=== PATIENT | female | born 1985 | race American Indian/Alaskan Native ===

== ENCOUNTER 2018-07-19 18:19 | Outpatient (CLI) | payer MEDICAID ==
[2018-07-19 18:58] VITALS: BP 119/67
[2018-07-19 20:19] LABS: Bilirubin,Urine NEG (Negative); Blood,Urine LG (Negative); Color,Urine Yellow (Yellow); Mucus,Urine FEW /HPF; Protein,Urine <15 mg/dL mg/dL (Negative); Urobilinogen,Urine < 2.0 mg/dL (<2.0); WBC,Urine < 1.0 /HPF (0.0-6.0)
[2018-07-19 21:34] LABS: Mean Corpuscular HGB Conc 33 % (30-34); Mean Corpuscular Volume 76 fl (79-97); Platelet Count 233 K/mm3 (140-440); Red Blood Count 3.93 M/mm3 (3.65-5.03); Red Cell Distribution Width 14.6 % (13.2-15.2)
[2018-07-19 21:36] LABS: Mean Corpuscular Hemoglobin 25 pg (28-32)
--- NOTE | 2018-07-19 22:36 | Ultrasound Report ---
PROCEDURE: US OB >= 14 WEEKS FETUS TECHNIQUE: Real-time transabdominal sonography of the uterus, placenta, amniotic fluid, adnexa, and fetus was performed with image documentation. Measurements were obtained to determine age/size. M-mode Doppler was used to document heartbeat. ADDITIONAL GESTATION: None HISTORY: vaginal spotting/no care COMPARISONS: None. FINDINGS: MATERNAL: Uterus and cervix: The cervix is closed measures 3.5 cm in length. Adnexa and ovaries: Not visualized. IUP: Single live intrauterine gestation. Position: Cephalic Placental position: Anterior with grade 1 maturity, without previa . Amniotic fluid volume Normal. CARLIN is 14.2 cm. Cardiac activity: Regular rhythm at 1 55 bpm, regular bpm. BIOMETRY: Biparietal diameter: 6 cm corresponding to 21 weeks and 2 days. Head circumference: 22.5 cm corresponding to 24 weeks and 4 days. abdominal circumference: 20.6 cm corresponding to 25 weeks and 1 day. Femur length: 4.5 cm corresponding to 24 weeks and 6 days. Ratio biometry: Normal . Estimated Weight: 752 grams +/- grams. ounces +/- .ounces. . percentile. Mean Gestational Age (composite criteria) based on today's measurements: 24 weeks and 5 days. Estimated Due Date (earliest scan): 11/03/2018. IMPRESSION: Single live intrauterine gestation at 24 weeks and 5 days. Estimated due date: 11/03/2018. This document is electronically signed by Marcelo Olivier MD., July 19 2018 10:34:34 PM ET
== END 2018-07-19 22:00 | disposition home or self-care (01) ==
LOC: TRG 18:19
PROVIDERS: ATTEND Obstetrics & Gynecology
DX: O47.02 False labor before 37 completed weeks of gestation, second trimester (principal); Z3A.24 24 weeks gestation of pregnancy
CPT/HCPCS: 36415; 76805; 81001; 82962; 85027; 87086

== ENCOUNTER 2018-08-05 08:19 | Outpatient (CLI) | payer MEDICAID ==
[2018-08-05 08:52] VITALS: BP 103/62
[2018-08-05] MEDS ORDERED: LACTATED RINGERS 500 ML IV ONE (09:00)
[2018-08-05 09:52] LABS: Bilirubin,Urine NEG (Negative); Blood,Urine NEG (Negative); Color,Urine Yellow (Yellow); Protein,Urine <15 mg/dL mg/dL (Negative); Urobilinogen,Urine < 2.0 mg/dL (<2.0)
[2018-08-05] MEDS ORDERED: TYLENOL PO PRN (11:08)
--- NOTE | 2018-08-05 11:10 | Ultrasound Report ---
PROCEDURE: US OB LIMITED TECHNIQUE: Limited obstetric ultrasound was performed for evaluation of the placenta HISTORY: placenta evaluation- post fall COMPARISONS: Obstetric ultrasound performed on 07/19/2018 FINDINGS: There is a single live intrauterine in cephalic presentation. heart rate is 152 bpm. There is an anterior, grade 3 placenta, that is away from the cervical os. There is no evidence of pl acental abruption. IMPRESSION: Anterior, grade 3 placenta. No evidence of placenta previa or placental abruption. Single live intrauterine in cephalic presentation. This document is electronically signed by Yadi Perdue MD., August 05 2018 11:08:25 AM ET
== END 2018-08-05 12:31 | disposition home or self-care (01) ==
LOC: TRG 08:19
PROVIDERS: ATTEND Obstetrics & Gynecology
DX: O47.02 False labor before 37 completed weeks of gestation, second trimester (principal); O99.512 Diseases of the respiratory system complicating pregnancy, second trimester; J45.909 Unspecified asthma, uncomplicated; Z3A.27 27 weeks gestation of pregnancy
CPT/HCPCS: 76815; 81001; 86850; 86900; 86901

== ENCOUNTER 2018-08-15 23:38 | Outpatient (CLI) | payer MEDICAID ==
[2018-08-16 00:16] VITALS: BP 119/64
[2018-08-16] MEDS ORDERED: LACTATED RINGERS 500 ML IV ONE (00:49)
[2018-08-16 02:50] LABS: Amorphous Crystals,Urine Few; Bilirubin,Urine NEG (Negative); Blood,Urine NEG (Negative); Color,Urine Yellow (Yellow); Mucus,Urine FEW /HPF; Protein,Urine <15 mg/dL mg/dL (Negative)
== END 2018-08-16 03:46 | disposition home or self-care (01) ==
LOC: TRG 23:38
PROVIDERS: ATTEND Obstetrics & Gynecology
DX: O47.03 False labor before 37 completed weeks of gestation, third trimester (principal); Z3A.28 28 weeks gestation of pregnancy
CPT/HCPCS: 81001; 87086; J7120

== ENCOUNTER 2018-10-10 22:22 | Outpatient (CLI) | payer MEDICAID ==
[2018-10-10 22:49] VITALS: BP 113/66
== END 2018-10-10 23:19 | disposition home or self-care (01) ==
LOC: TRG 22:22
PROVIDERS: ATTEND Obstetrics & Gynecology
DX: O62.8 Other abnormalities of forces of labor (principal); O99.513 Diseases of the respiratory system complicating pregnancy, third trimester; J45.909 Unspecified asthma, uncomplicated; Z3A.37 37 weeks gestation of pregnancy
CPT/HCPCS: 59025